=== PATIENT | male | born 1940 | race Caucasian/White ===

== ENCOUNTER → 2023-09-25 11:09 | Outpatient (REF) | payer OTHER, SELFPAY | LOC: HWRAD 11:09 | PROVIDERS: ATTENDING PHYSICIAN Physician Assistant Surgical; FAMILY PHYSICIAN Nurse Practitioner | DX: M25.562 Pain in left knee (principal); M25.561 Pain in right knee | CPT/HCPCS: 73560; 73565 ==

== ENCOUNTER → 2024-06-03 10:35 | Outpatient (REF) | payer OTHER, SELFPAY | LOC: RAD 10:35 | PROVIDERS: ATTENDING PHYSICIAN Nurse Practitioner; FAMILY PHYSICIAN Nurse Practitioner | DX: I65.23 Occlusion and stenosis of bilateral carotid arteries (principal) | CPT/HCPCS: 93880 ==

== ENCOUNTER → 2024-07-28 08:37 | Outpatient (REF) | payer OTHER, SELFPAY ==
--- NOTE | 2024-06-19 12:14 | PN.DIAED02 ---
Addendum entered by Rebekah Alejandro RN 07/25/24 14:37:
height: 5 ft 9 inches
Addendum entered by Rebekah Alejandro RN 06/19/24 13:11:
Dx: E11.42
Allergy: Glipizide: causes mouth numbness
Original Note:
Referral
DSME Class Series Code: [id number]
Referred For: Diabetes Self-Management Training, Medical Nutrition Therapy, Self-Blood Glucose Monitoring, Long-Term Complication Instruction, Accute Complication Instruction, Continuous Glucose Monitoring, Medication management, Care Coordination,
Disease Management
PHI Release Authorization Form Signed: Yes
Demographic
Patient's primary language-: Japanese
Education: High school/GED
Occupation: Retired
- Social
Primary Support Person: Self
Primary Care Takers: Self
Living Arrangements: Self & spouse
- Learning Methods
Preferred Method: Hands-on demonstration
Barriers to Learning: None
Glycemic Control
- Blood Glucose Monitoring Assessment
Date: 04/03/24 (FB mg/dL)
Blood glucose monitoring at home: Yes
Monitor Brands: Accu-Chek (Accu-Check Guide monitor at home-checks 1-2 times per week)
Frequency: occasionally
Patient uses Alternate Site Testing: No
Patient instructed on Use and Limitation: No
- Ketone Monitoring Assessment
Patient monitoring ketone: No
- Hyperglycemia Assessment
Experiences Hyperglycemia: No
- Hypoglycemia Assessment
Patient carries glucose source: No
- Blood Glucose Monitoring Results
Source: self-report
- Hemoglobin A1c
Date: 04/03/24
A1C Percentage (%): 8.6
Medical History of Diabetes
Family Diabetes History: Unknown
Previous Diabetes Education: No
Complications/Comorbidity/Specialist: Cataracts, Diabetic Neuropathy, Heart Disease (Aspirin 81 mg daily), Hypertension (Amlodipine 5 mg daily), Hyperlipidemia (atorvastatin 80 mg daily), Kidney / bladder disease (Visits with Dr. Massey, DO
(appian developer) yearly --taks Jardiance 25 mg daily)
Current Home Medication
- Insulin Management
Patient adjusts own insulin dosages: No (Jardiance 25 mg daily & Sitagliptin 100 mg daily)
Measures
- Anthropometrics
Actual Weight: 173 lb
- Blood Pressure / Pulse
Blood pressure: 143/69
Pulse: 82
- Diabetes Management
Medical Management for Diabetes: Complete physical exam (04/2024), Dental exam (06/2024), Dilated eye exam (01/2024), Flu Vaccination (04/08/24), Foot exam (03/2024), Nephropathy screening (04/2024), Pneumonia vaccination (11/2023)
Self-Care
- Tobacco Usage
Do you now, or have you ever smoked?: Quit more than 1 year ago (Quit July 27, 1965)
- Alcohol & Drugs Usage
Drinks Alcohol: No
- Meals & Dining
Meals & Dining: Patient skips meals: No
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
Primary General Manager [employer]: Self & Spouse
Dining Out Frequency: 4-6x per week
- Physical Activity
Physical Limitation: No
Patient participates in physical Activity: Yes (cardio & weight training 3 times per week)
Activity Types: Strength training, walking
Duration: > 50 minutes
Frequency: 3-5x per week
- Self Foot-Care
Foot Problems: None (Assistant Program Director vist every 90 days)
- Patient-Self Assessment
Diabetes Knowledge: Fair
Feelings About Diabetes: Acceptance
General Health: Good
Importance of Health: Extremely
Stress Level: High
Depression Survey Score: 12
- Diabetes Identification
Carries Diabetes Identification: No
Care Plan
- Education Needs
Patient Education Needs: Diabetes disease process, Chronic complications, Acute complications, Medication, Monitoring, Physical activity, Psychosocial Adjustment, Nutritional management, Goal setting & problem solving
Recommended Diabetes Training Program based on assessment: Outpatient Diabetes Education Program (Mrs. Paulino will join the class as well)
Patient Call Notes
- Patient Call Notes
Evaluated By: Registered Nurse
Notes:
Mr. Paulino presented with his for the initial diabetes assessment prior to the July 2024 daytime session. Mrs. Paulino plans to join Victor Hugo for the course. Victor Hugo has had diabetes for 25 years and has never participated in diabetes education. He
refused to take the pre-assessment quiz and stated 'he had enough tests in school'. I offered to read aloud the questions and discussed the rationale for obtaining the pre-quiz however, he still refused. I did also mention there would be a post quiz
after each session. Victor Hugo has an Accu-Chek Guide glucometer at home that he uses appx. 1- 2 times per week. We discussed the importance of monitoring his numbers in order to reach his hemoglobin A1c goal. Victor Hugo's most recent Hemoglobin A1c from
March, was 8.6 %. Mrs. Paulino stated this has been his highest reading and they are in need of guidance. I reinforced that by attending the DSME course, they will be able to receive education and guidance. Written material was given to Victor Hugo
to review prior to the course. I highlighted specific blood glucose targets and we reviewed a schedule for monitoring. Victor Hugo and Mrs. Paulino participate in physical activity 3 days per week through [employer]. They attend [employer] as well
as the [place]. We discussed adjusting some of their current routines of weight lifting and walking by increasing the duration or intensity if tolerated. They mentioned they would seek assistance from the geophysical prospecting surveyor at the gym.
--- NOTE | 2024-06-19 12:54 | PN.DIAED04 ---
Education Record
- Education Record
Class Attended: Other ()
Pre-Test Score (%): 0 (refused to take assessment)
Goals
- Goal 1
Being Active: Other (increase cardiovascular and/or weight training to 90 mintues 3 times per/wk)
Goals To Be Evaluated: Other
- Goal 2
Healthy Eating: Make better food choices
Goals To Be Evaluated: Make better food choices
- Goal 3
Monitoring: Monitor more often
Goals To Be Evaluated: Monitor more often
--- NOTE | 2024-07-24 11:23 | PN.DIAED18 ---
Depression is associated with poor diabetes self-management and perceived inability to control diabetes.
After careful consideration and multiple layers of input, the [facility]'s outpatient diabetes education program has implemented a depression screening tool. The tool is the PHQ-9 Quick Depression Assessment.
Each patient who attends the outpatient diabetes education class responds to 9 questions before the first class starts. At the completion of the 5 classes, each patient again responds to the same 9 questions. In theory, after completing the program
the hope is that the patient will feel somewhat more capable of diabetes self-management.
Your patient, YIMI MCBRIDE ( 1940), scored '12' on the pre-depression screening, which indicated moderate depression; Your patient did not complete the last class so we have no post-depression score.
Enclosed please find a copy of the depression screening.
If you require any additional information, please do not hesitate to contact me at [phone].
Sincerely,
Duane HOLM, GUS
--- NOTE | 2024-07-29 13:21 | PN.DIAED14 ---
This is to notify you that your patient with diabetes, YIMI MCBRIDE ( 1940), has enrolled in our diabetes self-management classes that are being held at [facility].
These classes will include an introduction to diabetes, diet, medication, exercise and prevention of complications. At the end of our class series, you will receive a report of your patient's participation and progress for your records.
Please contact me at the Diabetes Center, , if there is any particular information regarding your patient that might be helpful to me.
Sincerely,
Duane MATIAS-KARI,[facility]
--- NOTE | 2024-07-29 13:22 | PN.DIAED04 ---
Addendum entered and electronically signed by Elissa Baird 07/30/24 11:46:
Outpatient Diabetes Education Program:
Class 1 (120 minutes)
Describe the diabetes disease process and treatment options
Diabetes management
Develop personal strategies to promote health and behavior change
Integrate psychosocial adjustment for daily living
Monitor blood glucose and other parameters. Interpret and use the results for self-management decision making
Prevent, detect, and treat acute complications
Original Note:
Education Record
- Education Record
Class Attended: Class 1
DSME Class Series Code: [id number]
Instructor: Nurse Practitioner
Class Length (mins): 120
Post-Class 1 Test Score (%): 100
--- NOTE | 2024-07-31 18:05 | PN.DIAED06 ---
Meal Plans - Regular
- Meal Plan
Diabetic Meal Plan Name: 1600 calories
Breakfast - Total Carbohydrate (grams): 45
Breakfast - Starch Carbohydrate: 0
Breakfast - Fruit Carbohydrate: 0
Breakfast - Milk Carbohydrate: 0
Breakfast - Nonstarchy Vegetables: Yes
Breakfast - Meat/Protein: 1
Breakfast - Fat: 2
Morning Snack - Total Carbohydrate (grams): 15
Morning Snack - Starch Carbohydrate: 0
Morning Snack - Fruit Carbohydrate: 0
Morning Snack - Milk Carbohydrate: 0
Morning Snack - Nonstarchy Vegetables: Yes
Morning Snack - Meat/Protein: 0.5
Morning Snack - Fat: 0
Lunch - Total Carbohydrate (grams): 30
Lunch - Starch Carbohydrate: 0
Lunch - Fruit Carbohydrate: 0
Lunch - Milk Carbohydrate: 0
Lunch - Nonstarchy Vegetables: Yes
Lunch - Meat/Protein: 3
Lunch - Fat: 1
Afternoon Snack - Total Carbohydrate (grams): 15
Afternoon Snack - Starch Carbohydrate: 0
Afternoon Snack - Fruit Carbohydrate: 0
Afternoon Snack - Milk Carbohydrate: 0
Afternoon Snack - Nonstarchy Vegetables: Yes
Afternoon Snack - Meat/Protein: 0.5
Afternoon Snack - Fat: 0
Dinner - Total Carbohydrate (grams): 30
Dinner - Starch Carbohydrate: 0
Dinner - Fruit Carbohydrate: 0
Dinner - Milk Carbohydrate: 0
Dinner - Nonstarchy Vegetables: Yes
Dinner - Meat/Protein: 3
Dinner - Fat: 1
Evening Snack - Total Carbohydrate (grams): 15
Evening Snack - Starch Carbohydrate: 0
Evening Snack - Fruit Carbohydrate: 0
Evening Snack - Milk Carbohydrate: 0
Evening Snack - Nonstarchy Vegetables: Yes
Evening Snack - Meat/Protein: 0
Evening Snack - Fat: 0
== END ==
LOC: DES 08:37
PROVIDERS: ATTENDING PHYSICIAN Nurse Practitioner; FAMILY PHYSICIAN Nurse Practitioner
DX: E11.42 Type 2 diabetes mellitus with diabetic polyneuropathy (principal)
CPT/HCPCS: 99078

== ENCOUNTER → 2024-08-11 08:32 | Outpatient (REF) | payer OTHER, SELFPAY | LOC: DES 08:32 | PROVIDERS: ATTENDING PHYSICIAN Internal Medicine | DX: E11.42 Type 2 diabetes mellitus with diabetic polyneuropathy (principal) | CPT/HCPCS: 99078 ==

== ENCOUNTER → 2024-08-18 09:52 | Outpatient (REF) | payer OTHER, SELFPAY ==
--- NOTE | 2024-08-19 10:25 | PN.DIAED04 ---
Education Record
- Education Record
Class Attended: Class 4
DSME Class Series Code: [id number]
Instructor: Nurse Practitioner (POLLY Segura)
Class Curriculum:
Outpatient Diabetes Education Program:
Class 4 (120 minutes)
Develop personal strategies to promote health and behavior change
Incorporate physical activity into lifestyle
Utilize medications safety for maximum therapeutic effectiveness
Understand different medication/insulin mechanism of action
Preparing for travel
Class Length (mins): 120
Post-Class 4 Test Score (%): 100
== END ==
LOC: DES 09:52
PROVIDERS: ATTENDING PHYSICIAN Internal Medicine
DX: E11.42 Type 2 diabetes mellitus with diabetic polyneuropathy (principal)
CPT/HCPCS: 99078

== ENCOUNTER → 2024-08-25 10:49 | Outpatient (REF) | payer OTHER, SELFPAY | LOC: DES 10:49 | PROVIDERS: ATTENDING PHYSICIAN Internal Medicine | DX: E11.42 Type 2 diabetes mellitus with diabetic polyneuropathy (principal) | CPT/HCPCS: 99078 ==

== ENCOUNTER → 2024-12-09 13:12 | Outpatient (REF) | payer OTHER, SELFPAY | LOC: RAD 13:12 | PROVIDERS: ATTENDING PHYSICIAN Podiatrist Foot & Ankle Surgery; FAMILY PHYSICIAN Nurse Practitioner | DX: E11.42 Type 2 diabetes mellitus with diabetic polyneuropathy (principal); E11.51 Type 2 diabetes mellitus with diabetic peripheral angiopathy without gangrene | CPT/HCPCS: 93922; 93925 ==

== ENCOUNTER 2025-03-14 07:07 | Emergency (ER) | payer OTHER, SELFPAY ==
[2025-03-14 07:14] VITALS: BP 168/84
[2025-03-14 07:20] VITALS: BMI 24.6
--- NOTE | 2025-03-14 07:26 | ED.GENMED ---
History of Present Illness
General
Chief Complaint: Change in Mental Status
Source: patient
Exam Limitations: none
Time Seen by Provider: 03/14/25 07:15
History of Present Illness
History of Present Illness:
85-year-old male with history of hypertension, ego-vlzwdml-fnevyzngy diabetes presents with episode of confusion that started last night around 5:30 PM. He states he was sitting at the computer and suddenly became confused. He does not know what
he was doing then. He was having trouble trying to figure out how to work the computer. He checked his blood sugar which was 160s. He took his nighttime medicines and went to sleep. He got up several times throughout the night which typical for
him due to his enlarged prostate. He noticed that he was confused throughout the night as well. They called EMS and they brought him here. Since being here he states he is feeling better. He denies chest pain or headache. He denies any
unilateral numbness or weakness. There is no reported difficulty speaking. He denies any recent fever or illness.
Past History
Past History
ED Past Medical History: CAD, HTN, Hypercholesterolemia and NIDDM
ED Past Surgical History: Cardiac (Assessment cardiac stents) and Other (Hernia surgery)
Social History
Personal:
Living: with family
Employment: Retired
Phy Exam
Physical Exam
Physical Exam:
General: Well-appearing male no acute respiratory distress
HEENT normal cephalic atraumatic
Heart: Regular rate and rhythm
Lungs: Clear no wheeze
Neurologic exam: Alert and oriented no facial asymmetry dysarthria or aphasia. No drift on exam finger-nose xexx-cc-aquu intact
Abdomen is soft nontender nondistended
Course
Orders/Labs/Results
Orders:
Orders
03/14/25 07:12
Electrocardiogram (*1) Urgent
Reason for Study: Vertigo / Dizzy
EKG- Treatment ONCE
03/14/25 07:22
CMP [Comprehensive Metabolic Panel] Urgent
Complete Blood Count/With Diff Urgent
Troponin I Urgent
03/14/25 07:24
CT Head W/o Iv Contrast Urgent
Comment:
Reason For Exam: confusion
03/14/25 08:36
Urinalysis Reflex To Culture Urgent
Date Specimen was Collected: 03/14/25
Time Specimen was Collected: 08:33
Urine Microscopic Reflex Cult Urgent
03/14/25 09:12
CT Head & Neck Angio W/wo IV Urgent
Comment:
Reason For Exam: confusion
Abnormal Lab Results
03/14/25 03/14/25
07:22 08:36
RBC 4.05 L 10^6/uL
(4.70-6.10)
Hgb 11.6 L g/dL
(13.0-18.0)
Hct 35.3 L %
(39.0-52.0)
MCHC 32.9 L g/dL
(33.0-37.0)
BUN 39 H mg/dl
(9-20)
Creatinine 1.4 H mg/dL
(0.7-1.3)
Glucose 158 H mg/dl
(70-99)
Alkaline Phosphatase 154 H U/L
(38-126)
Urine Glucose 4+ A
(Negative)
Urine Albumin (Reflex) 1+ A
(Neg - Trace)
03/14/25 07:22
03/14/25 07:22
Vital Signs
Initial and Last Documented VS:
Initial Vital Signs
Temp Pulse Resp BP Pulse Ox
98.5 F 79 16 168/84 97
03/14/25 07:14 03/14/25 07:14 03/14/25 07:14 03/14/25 07:14 03/14/25 07:14
Last Documented Vital Signs
Temp Pulse Resp BP Pulse Ox
98.5 F 79 16 168/84 97
03/14/25 07:14 03/14/25 07:15 03/14/25 07:15 03/14/25 07:14 03/14/25 07:29
MDM/Problems Addressed
Differential Diagnosis Includes:
Patient with transient episode of confusion which seems to have resolved. Does have risk factors of diabetes, hypertension. Consider TIA versus underlying infectious issue such as UTI versus electrolyte abnormality
EKG demonstrates new left bundle branch block. He is not having any chest pain diaphoresis nausea. Troponin is pending however. Labs otherwise CT of the head pending. Discussed with emergency room attending.
*Pulse Oximetry
SaO2: 97
Oxygen Mode of Delivery: Room air
Patient hypoxic: no
*Critical Care Note
Total Time (30-74mins, 75-104mins- exclusive of procedures): Not Applicable
Update Note
Update Note:
Patient reexamined still not confused still without any neurologic deficit. CT head the head was negative. Discussed findings with neurology who suggested CT angio of the head and neck. At this point consider possibly resolved TIA. He is on a
statin and an aspirin. Per neurology no indication for admission but would recommend follow-up with cardiology for more cardiac monitoring. Return to given. Stable for the
ED Attending Note
-
Portions of this chart may have been created with voice recognition software.� Occasional wrong word or��sound alike� substitutions may have occurred due to the inherent limitations of voice recognition software.
Discharge Plan
Departure
Patient Disposition: Home (Routine Discharge)
Date of Disposition: 03/14/25
Time of Disposition: 11:02
Patient with high blood pressure during this ER visit?: No
Discharge Problem:
TIA
Prescriptions:
No Action
atorvastatin 40 MG tablet
80 mg PO QPM
sildenafil [Viagra] 100 MG tablet
100 mg PO PRN PRN (Reason: Erectile dysfunction)
tamsulosin 0.4 MG capsule
0.4 mg PO HS
aspirin [Anna Low Dose Aspirin] 81 MG tablet,delayed release (DR/EC)
81 mg PO DAILY
amlodipine 10 MG tablet
10 mg PO DAILY
nitroglycerin 0.4 MG tablet, sublingual
0.4 mg sublingual PRN PRN (Reason: chest pain)
multivitamin with folic acid [Tab-A-Emma] 1 TABLET tablet
1 tab PO DAILY
alogliptin 12.5 MG tablet
12.5 mg PO DAILY
empagliflozin [Jardiance] 10 MG tablet
10 mg PO DAILY@1800
polyethylene glycol 3350 17 GRAMS powder in packet
17 grams PO DAILYPRN PRN (Reason: constipation) Qty: 1 0RF
acetaminophen [Tylenol Extra Strength] 500 MG tablet
1,000 mg PO Q6HPRN PRN (Reason: mild pain) Qty: 1 0RF
oxycodone 5 MG tablet
5 mg PO Q4HPRN PRN (Reason: breakthrough/severe pain) Qty: 10 0RF
Referrals:
Lorri Irizarry CRNP [Family Provider, Family Practice]
Activity Restrictions/Additional Instructions:
Continue aspirin and your statin. Please return here for worsening symptoms. Follow-up with your doctors otherwise
Interventions
Interventions:
*Risk Screen - Suicide Last Done: 03/14/25 07:14
*General Assessment Last Done: 03/14/25 07:14
*Neglect/Abuse Screening Last Done: 03/14/25 07:14
*ED- Fall Risk Assessment Last Done: 03/14/25 08:10
*ED COVID-19 Vaccine History Last Done: 03/14/25 07:14
ED- Cardiac Assessment Last Done: 03/14/25 07:20
ED- Neurological Assessment Last Done: 03/14/25 07:14
ED- Pulmonary Assessment Last Done: 03/14/25 07:14
Discharge Date and Time
Print Language: IVORIAN
[2025-03-14 07:42] LABS: Hematocrit 35.3 % (39.0-52.0); Hemoglobin 11.6 g/dL (13.0-18.0); Mean Corp Hgb Conc. 32.9 g/dL (33.0-37.0); Mean Corpuscular Volume 87.2 fL (80.0-94.0); Nucleated Red Blood Cells % 0 % (-); Platelet Count 158 10^3/uL (130-400); Red Cell Dist. Width 13.8 % (11.5-14.5)
[2025-03-14 07:55] LABS: ALT (SGPT) 21 U/L (0-50); AST (SGOT) 24 U/L (17-59); Albumin 4.3 g/dl (3.5-5.0); Alkaline Phosphatase 154 U/L (38-126); Blood Urea Nitrogen 39 mg/dl (9-20); Calcium 9.4 mg/dl (8.4-10.2); Carbon Dioxide 26 mmol/L (22-30); Chloride 107 mmol/L (98-107); Estimated Creatinine Clearance 41 ml/min; Glucose 158 mg/dl (70-99); Potassium 4.5 mmol/L (3.5-5.1); Sodium 138 mmol/L (135-145); Total Protein 6.8 g/dl (6.3-8.2); eGFR 49.56
[2025-03-14 08:06] LABS: Troponin I < 0.012 ng/ml
[2025-03-14 09:00] LABS: Urine Character Clear (Clear)
[2025-03-14 10:31] LABS: Urine Red Blood Cell 0-2 /HPF (0-2); Urine Squamous Cell 0-2 /LPF (Few)
== END 2025-03-14 12:09 | disposition home or self-care (01) ==
LOC: EMR 07:07
PROVIDERS: Physician Assistant; EMERGENCY PHYSICIAN Emergency Medicine; FAMILY PHYSICIAN Nurse Practitioner
DX: G45.9 Transient cerebral ischemic attack, unspecified (principal); I44.7 Left bundle-branch block, unspecified; E11.9 Type 2 diabetes mellitus without complications; I25.10 Atherosclerotic heart disease of native coronary artery without angina pectoris; I10 Essential (primary) hypertension; E78.00 Pure hypercholesterolemia, unspecified; N40.0 Benign prostatic hyperplasia without lower urinary tract symptoms; Z79.82 Long term (current) use of aspirin; Z79.84 Long term (current) use of oral hypoglycemic drugs; Z95.5 Presence of coronary angioplasty implant and graft
CPT/HCPCS: 99284; 70450; 70496; 70498; 80053; 81003; 81015; 84484; 85025; 93005; Q9967

== ENCOUNTER → 2025-03-31 09:21 | Outpatient (REF) | payer OTHER, SELFPAY | LOC: RCS 09:21 | PROVIDERS: ATTENDING PHYSICIAN Internal Medicine Cardiovascular Disease; FAMILY PHYSICIAN Nurse Practitioner | DX: Z95.2 Presence of prosthetic heart valve (principal); G45.9 Transient cerebral ischemic attack, unspecified | CPT/HCPCS: 93306 ==

== ENCOUNTER → 2025-04-27 10:24 | Outpatient (REF) | payer OTHER, SELFPAY | LOC: RAD 10:24 | PROVIDERS: ATTENDING PHYSICIAN Psychiatry & Neurology Neurology; FAMILY PHYSICIAN Nurse Practitioner | DX: I63.9 Cerebral infarction, unspecified (principal); I65.22 Occlusion and stenosis of left carotid artery | CPT/HCPCS: 93880 ==

== ENCOUNTER 2025-05-15 09:21 | Outpatient (RCR) | payer OTHER, SELFPAY | END 2025-05-15 23:59 | disposition home or self-care (01) | LOC: RST 09:21 | PROVIDERS: ATTENDING PHYSICIAN Psychiatry & Neurology Neurology | DX: I69.328 Other speech and language deficits following cerebral infarction (principal); Z73.6 Limitation of activities due to disability | CPT/HCPCS: 92507; 92523 ==

== ENCOUNTER 2025-06-10 07:21 | Outpatient (RCR) | payer OTHER, SELFPAY | END 2025-06-10 23:59 | disposition home or self-care (01) | LOC: RST 07:21 | PROVIDERS: ATTENDING PHYSICIAN Psychiatry & Neurology Neurology | DX: I69.328 Other speech and language deficits following cerebral infarction (principal); Z73.6 Limitation of activities due to disability | CPT/HCPCS: 92507 ==

== ENCOUNTER 2025-07-01 11:00 | Outpatient (RCR) | payer OTHER, SELFPAY | END 2025-07-15 23:59 | disposition home or self-care (01) | LOC: ROT 11:00 | PROVIDERS: ATTENDING PHYSICIAN Psychiatry & Neurology Neurology | DX: I69.328 Other speech and language deficits following cerebral infarction (principal); Z73.6 Limitation of activities due to disability | CPT/HCPCS: 92507; 97167; 97535 ==